=== PATIENT | female | born 2000 | race Caucasian/White ===

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

== ENCOUNTER 2020-05-01 11:48 | Emergency (ER) | payer OTHER ==
--- NOTE | 2020-05-01 14:08 | RAD ---
EXAM DESCRIPTION: Chest,2 Views CLINICAL HISTORY: 20 years Female, cough and fever, no covid exposure. COMPARISON: 11/24/2019. TECHNIQUE: PA and lateral radiographs of the chest were obtained. FINDINGS: Trachea is midline.The cardiomediastinal silhouette is normal in size. The pulmonary vasculature is within normal limits. Hazy airspace opacities are identified in the bilateral lower lobes. Findings could represent atelectasis related to poor inspiratory effort versus early pneumonia. IMPRESSION: Hazy airspace opacities are identified in the bilateral lower lobes. Findings could represent atelectasis related to poor inspiratory effort versus early pneumonia. Electronically signed by: Poonam Schmitz MD 05/01/2020 2:06 PM CDT
[2020-05-01] MEDS ORDERED: PENICILLIN BENZATHINE 1.2 MU 1.2 MU/2 ML SYG IM ONE (15:03)
--- NOTE | 2020-05-01 15:30 | ED.PDOC ---
History of Present Illness - General Chief Complaint: ENT Problem Stated Complaint: sore throat Time Seen by Provider: 05/01/20 13:17 Source: patient, RN notes reviewed, Vital Signs reviewed, family - Grandmother Exam Limitations: no limitations - History of Present Illness Initial Comments: Patient is a morbidly obese 20-year-old white female who presents with complaints of a sore throat and cough. This started 2 days ago and is worsened. Patient has also had fever. The sore throat is scratchy and burning in nature. Moderate in intensity. Worse with swallowing or drinking or eating. Nothing makes it better. There is no radiation of the pain. Timing/Duration: getting worse, other - 2 days Severity: moderate Improving Factors: nothing Worsening Factors: eating Associated Symptoms: fever/chills Allergies/Adverse Reactions: Allergies NO KNOWN ALLERGY Allergy (Verified 05/01/20 15:27) Home Medications: Ambulatory Orders Escitalopram Oxalate 20 mg PO DAILY 10/14/19 Acetaminophen W/ Codeine [Tylenol W/ CODEINE #3] 1 ea PO Q6H PRN #20 11/24/19 Amoxicillin 500 mg PO TID #21 tab 11/24/19 Ibuprofen [Motrin] 600 mg PO Q6H PRN #20 tab 11/24/19 Amoxicillin 1,000 mg PO BID #12 cap 05/01/20 Review of Systems - Review of Systems Constitutional: States: see HPI, chills, fever, malaise. Denies: weakness EENTM: States: see HPI, throat pain. Denies: eye pain, blurred vision, double vision Respiratory: States: see HPI, cough. Denies: short of breath, wheezing Cardiology: States: no symptoms reported. Denies: chest pain, palpitations, syncope Gastrointestinal/Abdominal: States: no symptoms reported. Denies: abdominal pain, diarrhea, nausea, vomiting Genitourinary: States: no symptoms reported. Denies: discharge, dysuria, frequency Musculoskeletal: States: no symptoms reported. Denies: back pain, neck pain Skin: States: no symptoms reported. Denies: change in color, rash Neurological: States: no symptoms reported. Denies: headache, numbness, tingling, tremors Endocrine: States: no symptoms reported Hematologic/Lymphatic: States: no symptoms reported All other Systems: Reviewed and Negative Past Medical History (General) - Patient Medical History Hx Seizures: No Hx Stroke: No Hx Dementia: No Hx Asthma: No Hx of COPD: No Hx Cardiac Disorders: No Hx Congestive Heart Failure: No Hx Pacemaker: No Hx Hypertension: No Hx Thyroid Disease: No Hx Diabetes: No Hx Gastroesophageal Reflux: No Hx Renal Disease: No Hx of HIV: No Hx MRSA: No Surgical History: other - Partial hysterectomy at the age of 7 - Vaccination History Hx Tetanus, Diphtheria Vaccination: No Hx Influenza Vaccination: Yes Hx Pneumococcal Vaccination: No - Social History Hx Tobacco Use: No Hx Alcohol Use: No Hx Substance Use: No - Activities of Daily Living Hospice Agency (if applicable):: None - Female History Patient : No Family Medical History - Family History Mother Family History: No Known Living Status: Still Living Physical Exam - Physical Exam General Appearance: Alert, Anxious, Obvious distress, Obese, Well Developed, Well Groomed, Well Hydrated, Well Nourished Eye Exam: bilateral normal Ears, Nose, Throat: hearing grossly normal, pharyngeal erythema, tonsillar exudate, tonsillar swelling Neck: non-tender, full range of motion, supple, lymphadenopathy (R), lymphadenopathy (L) Respiratory: chest non-tender, lungs clear, normal breath sounds, no respiratory distress, no accessory muscle use Cardiovascular/Chest: normal peripheral pulses, no edema, no gallop, no JVD, no murmur, tachycardia Peripheral Pulses: radial,right: 2+, radial,left: 2+ Gastrointestinal/Abdominal: normal bowel sounds, non tender, soft, no organomegaly Back Exam: normal inspection, no CVA tenderness, no vertebral tenderness Extremity: normal range of motion, non-tender, normal inspection, no pedal edema, no calf tenderness Neurologic: solution lead II-XII nml as tested, no motor/sensory deficits, alert, normal mood/affect, oriented x 3 Skin Exam: normal color, warm/dry Lymphatic: other - Bilateral submandibular lymphadenopathy. Progress - Progress Progress: Differential diagnosis: Strep pharyngitis, viral pharyngitis, viral URI, pneumonia among others. 05/01/20 15:32 Patient's chest x-ray Is abnormal and concern for is abnormal.. Patient is tolerating p.o. She has decreased fever but is still tachycardic. Strep is positive. Plan on treatment with Bicillin LA and a couple of days of amoxicillin. Patient is tolerating p.o. and though she appears somewhat dehydrated, Therefore I will give her some IV fluids and aggressive temperature control. Jarred Paredes M.D. #[id number] 05/01/20 15:35 - Results/Orders Results/Orders: EXAM DESCRIPTION: Chest,2 Views CLINICAL HISTORY: 20 years Female, cough and fever, no covid exposure. COMPARISON: 11/24/2019. TECHNIQUE: PA and lateral radiographs of the chest were obtained. FINDINGS: Trachea is midline.The cardiomediastinal silhouette is normal in size. The pulmonary vasculature is within normal limits. Hazy airspace opacities are identified in the bilateral lower lobes. Findings could represent atelectasis related to poor inspiratory effort versus early pneumonia. IMPRESSION: Hazy airspace opacities are identified in the bilateral lower lobes. Findings could represent atelectasis related to poor inspiratory effort versus early pneumonia. Electronically signed by: Poonam Schmitz MD 05/01/2020 2:06 PM Laboratory Results - last 24 hr 05/01/20 14:00 Group A Strep Rapid Positive Vital Signs 05/01/20 12:45 Temperature 101.5 F H Pulse Rate [ 140 H pulse ox] Respiratory 20 Rate Blood Pressure 103/70 [left arm] O2 Sat by Pulse 95 Oximetry Departure - Departure Clinical Impression: Strep pharyngitis, Tachycardia, Dehydration Fever Qualifiers: Fever type: unspecified Qualified Code(s): R50.9 - Fever, unspecified Time of Disposition: 16:58 Disposition: Discharge to Home or Self Care Condition: Good Departure Forms: ED Discharge - Pt. Copy, Patient Portal Self Enrollment Instructions: Sore Throat, Adult (DC) Diet: resume usual diet Activity: increase activity as tolerated Referrals: Katie King MD [Primary Care Provider] - 1 Week Prescriptions: Amoxicillin 1,000 mg PO BID #12 cap Home Medications: Ambulatory Orders Escitalopram Oxalate 20 mg PO DAILY 10/14/19 Acetaminophen W/ Codeine [Tylenol W/ CODEINE #3] 1 ea PO Q6H PRN #20 11/24/19 Amoxicillin 500 mg PO TID #21 tab 11/24/19 Ibuprofen [Motrin] 600 mg PO Q6H PRN #20 tab 11/24/19 Amoxicillin 1,000 mg PO BID #12 cap 05/01/20
[2020-05-01] MEDS ORDERED: SODIUM CHLORIDE 0.9% 1000ML 1,000 ML IVS ONE (15:36)
[2020-05-01] MEDS ORDERED: ACETAMINOPHEN 500 MG TAB PO ONE (15:37)
[2020-05-01 17:10] VITALS: BP 123/89; TEMP 98.7; O2SAT 99
== END 2020-05-01 17:10 | disposition home or self-care (01) ==
LOC: ER 11:48
DX: J02.0 Streptococcal pharyngitis (principal); E86.0 Dehydration; R00.0 Tachycardia, unspecified; R50.9 Fever, unspecified
CPT/HCPCS: 36415; 71046; 87880; J0561; J7030

== ENCOUNTER → 2020-05-03 | Outpatient (CLI) | payer OTHER | LOC: YCFC.O 15:15 | PROVIDERS: ATTEND Family Medicine | DX: Z20.828 Contact with and (suspected) exposure to other viral communicable diseases (principal) ==